=== PATIENT | female | born 1995 | race Caucasian/White ===

== ENCOUNTER 2018-01-14 20:04 | Emergency (ER) | payer OTHER ==
[~2018-01-14] VITALS: Ht 170.2 cm; Wt 81.7 kg
[~2018-01-14 20:04] MED LIST: Cyclobenzaprine5 MG PO; Ferrous Sulfat324 MG PO; IBUP800 PO; OXYACE5T PO; PENVK500 PO; PRENATAL CAPLE1 EACH PO; PROM25 PO; Voltaren100 GM TOP
[2018-01-14 20:29] LABS: Source, Urine Clean Catch
[2018-01-14 20:35] LABS: Bilirubin, Urine Neg (Neg); Blood, Urine 3+ (Neg); Glucose Qualitative, Urine Neg (Neg); Ketones, Urine Neg (Neg); Leukocyte Esterase, Urine 1+ (Neg); Nitrite, Urine Neg (Neg); Protein, Urine Neg (Neg); Urobilinogen, Urine NORM (Normal)
[2018-01-14 20:40] LABS: Appearance, Urine Clear (Clear); Color, Urine Yellow (P-Yellow)
[2018-01-14 20:41] LABS: Squamous Epithelial Cells Mod /hpf (Few)
[2018-01-14 20:42] LABS: Bacteria Few /hpf
== END 2018-01-15 00:33 | disposition home or self-care (01) ==
LOC: ER 20:04
PROVIDERS: Emergency Medicine
DX: R10.9 Unspecified abdominal pain (principal); Z79.899 Other long term (current) drug therapy; F17.210 Nicotine dependence, cigarettes, uncomplicated
CPT/HCPCS: 74176; 81001; 81025; 87086; 96361; 96374; 99284; J1885; J7030

== ENCOUNTER 2018-05-31 17:19 | Emergency (ER) | payer OTHER ==
[~2018-05-31] VITALS: Ht 165.1 cm; Wt 93.9 kg
[~2018-05-31 17:19] MED LIST changes: +Tylenol325 MG PO; +Vibramycin100 MG PO
[2018-05-31 17:53] LABS: Source, Urine Clean Catch
[2018-05-31 17:59] LABS: Hematocrit 41.4 % (33.0-51.0); Hemoglobin 14.1 g/dL (11.5-16.0); Mean Corpuscular HGB 29.3 pg (26.0-34.0); Mean Corpuscular HGB Conc 34.1 g/dL (31.5-36.5); Mean Corpuscular Volume 86 fL (80-100); Mean Platelet Volume 9.7 fL (9.1-12.4); Platelet Count 332 K/mm3 (150-400); RDW Coefficient Variation 12.1 % (11.7-14.2); RDW Standard Deviation 38.5 fL (35.1-46.3); Red Blood Cell Count 4.81 M/mm3 (3.80-5.20); White Blood Cell Count 12.28 K/mm3 (4.00-11.30)
[2018-05-31 18:02] LABS: Appearance, Urine Hazy (Clear); Bilirubin, Urine Neg (Neg); Blood, Urine Neg (Neg); Color, Urine Yellow (P-Yellow); Glucose Qualitative, Urine Neg (Neg); Ketones, Urine Neg (Neg); Leukocyte Esterase, Urine 2+ (Neg); Nitrite, Urine Neg (Neg); Protein, Urine Neg (Neg); Urobilinogen, Urine NORM (Normal)
[2018-05-31 18:26] LABS: Bacteria Many /hpf; Red Blood Cells, Urine Not Seen /hpf (0-2)
[2018-05-31 18:27] LABS: Squamous Epithelial Cells Mod /hpf (Few)
[2018-05-31] MEDS ORDERED: Zofran Odt8 MG SL (18:56)
== END 2018-05-31 19:10 | disposition home or self-care (01) ==
LOC: ER 17:19
PROVIDERS: Emergency Medicine
DX: O21.0 Mild hyperemesis gravidarum (principal); O99.89 Other specified diseases and conditions complicating pregnancy, childbirth and the puerperium; R10.30 Lower abdominal pain, unspecified; O99.331 Smoking (tobacco) complicating pregnancy, first trimester; F17.210 Nicotine dependence, cigarettes, uncomplicated; Z3A.01 Less than 8 weeks gestation of pregnancy
CPT/HCPCS: 36415; 76801; 76817; 81001; 84702; 85027; 86900; 86901; 87086; 96361; 96374; 99284-25; J2405; J7030